=== PATIENT | male | born 1990 | race Caucasian/White ===

== ENCOUNTER 2017-04-05 16:06 | Emergency (ER) | payer SELFPAY ==
[2017-04-05] MEDS ORDERED: MORPHINE SULFATE 2 MG/ML PREFILLED SYR ONE (16:10)
[2017-04-05] MEDS ORDERED: MORPHINE SULFATE 4 MG/ML PREFILLED SYR IM ONE ×2 (16:14→16:52)
--- NOTE | 2017-04-05 16:17 | ED Physician Documentation ---
Wrist Injury - HISTORIAN Historian: patient - HPI Chief Complaint: Wrist Injury Additional Information: fell hurt R wrist. no other complaints Onset: just prior to arrival Where: park Severity: moderate Duration: persistent since Context: fall Location of Injury: R wrist Modifying Factors: pain on movement Further Comments: no - ROS CONST: no problems GI/: denies: nausea, vomiting NEURO: none CVS/RESP: none EYES/ENT: none MS/SKIN/LYMPH: none - PAST HX Past History: none Immunizations: UTD Allergies/Adverse Reactions: Allergies Allergy/AdvReac Type Severity Reaction Status Date / Time No Known Allergies Allergy Verified 04/05/17 16:20 Home Medications: Ambulatory Orders Medication Instructions Recorded Buprenorphine HCl/Naloxone HCl 2 mg PO BID 04/05/17 [Suboxone 2 mg-0.5 mg Tablet] Citalopram Hydrobromide [Celexa] 20 mg PO DAILY 04/05/17 - SOCIAL HX Smoking History: non-smoker Alcohol Use: none Drug Use: none - FAMILY HX Family History: none Wrist Physical Exam - Physical Exam General Appearance: alert, mild distress Hand: nml inspection Wrist: asymmetry, deformity Neuro: sensation nml Vascular: no vascular compromise, other (good cap refill all fingers, no loss of touch sensation) Tendon: tendon function nml Forearm/Elbow/Arm: uninjured above wrist Skin: warm/dry, normal color Head/ENT: nml inspection Neck/Back: nml inspection Resp/CVS: no resp. distress Abdomen: non-tender ED Results Lab/Radiology - Radiology Radiology Impressions: Distal radial fracture - Orders Orders: ED Orders Category Date Time Status Morphine Sulfate [DepoDur] Med 04/05/17 16:10 Discontinued 2 mg .ROUTE .STK-MED ONE Discharge Clincal Impression: Distal radial fracture Qualifiers: Encounter type: initial encounter Fracture type: closed Fracture morphology: unspecified fracture morphology Laterality: right Qualified Code(s): S52.501A - Unspecified fracture of the lower end of right radius, initial encounter for closed fracture Fall Qualifiers: Encounter type: initial encounter Qualified Code(s): W19.XXXA - Unspecified fall, initial encounter Referrals: Primary Doctor,No [Primary Care Provider] - 2 Days Condition: Stable Disposition: HOME, SELF-CARE Decision to Admit: NO Date of Decison to Admit: 04/05/17 Decision Time: 16:51
[2017-04-05 16:21] VITALS: BP 116/88
--- NOTE | 2017-04-05 18:24 | Diagnostic Imaging Report ---
MISAEL LEDESMA~ [facility] [address] [facility].[address] [address] ~ ~ ~ ~ Report Submission Date: Apr 05, 2017 4:36:49 PM DIP BRAZIER Patient ~ Study Name: FEDERICO DAMON ~ Date: Apr 05, 2017 4:24:34 PM DIP BRAZIER ~ Modality Type: CR Gender: M ~ Description: UPPER EXTREMITY : 89 ~ Institution: [facility] Physician: MISAEL LEDESMA ~ ~ ~ Examination: Plain film wrist History: Injury Comparison exams: None available Findings: 3 views the wrist demonstrates complex fracture involving the distal radius with posterior angulation. Ulna appears to be intact. Carpal bones without gross abnormality. Impression: Comminuted distal radial fracture with posterior angulation. ~ Electronically signed on Apr 05, 2017 4:36:49 PM DIP BRAZIER by: Eddy VELASQUEZ
== END 2017-04-05 17:00 | disposition home or self-care (01) ==
LOC: ED 16:06
DX: S52.501A Unspecified fracture of the lower end of right radius, initial encounter for closed fracture (principal); W19.XXXA Unspecified fall, initial encounter
CPT/HCPCS: 73110; 96372; 99283; J2270; L3908